=== PATIENT | female | born 1980 | race Hispanic/Latino ===

== ENCOUNTER 2017-08-17 09:58 | Outpatient (CLI) | payer MEDICAID ==
--- NOTE | 2017-08-17 11:40 | ULT ---
PELVIC ULTRASOUND WITH DOPPLER: (TRANSABDOMINAL, TRANSVAGINAL) DATE: 08/17/17 FINDINGS: The uterus measures 9.1 x 4.1 x 5.5 cm with a mass consistent with fibroid located anteriorly measuri ng 1.0 x 1.2 x 1.6 cm. There are multiple nabothian cysts in the cervix. The right ovary measures 3.2 x 2.7 x 2.5 cm. The left ovary measures 3.1 x 1.9 x 2.3 cm. There is a c omplex mass in the right ovary measuring 2.2 x 2.0 x 2.3 cm. No free fluid is seen. IMPRESSION: 1. Uterine fibroid. 2. 2.3 cm right ovarian complex cyst. A follow-up exam is recommended in 10-12 weeks. POS: YOSI
== END 2017-08-17 09:59 | disposition home or self-care (01) ==
LOC: SCSULT 09:58
PROVIDERS: ATTEND Nurse Practitioner
DX: D25.9 Leiomyoma of uterus, unspecified (principal); N83.291 Other ovarian cyst, right side
CPT/HCPCS: 76856